=== PATIENT | female | born 1965 | race Caucasian/White ===

== ENCOUNTER 2020-02-05 07:27 | Outpatient (CLI) | payer BC, SELFPAY ==
--- NOTE | ~2020-02-05 | MM_ITS ---
EXAMINATION: MM screening [facility] BI w prashant HISTORY: Screening mammogram TECHNIQUE: Craniocaudal and mediolateral oblique 3-D tomosynthesis images were obtained and synthetic 2-D images were generated. CAD analysis was submitted and interpreted. COMPARISON: 12/01/2018, 07/16/2015, 02/23/2013 BREAST PARENCHYMAL COMPOSITION: The breasts are heterogeneously dense, which may obscure small masses . FINDINGS: There is no evidence of suspicious mass, calcification, or architectural distortion to sugg est malignancy in either breast. There has been no suspicious interval change. IMPRESSION: 1. No mammographic evidence of malignancy. 2. Recommend routine screening mammography in one year. BI-RADS Category 1: Negative Reviewed, dictated and finalized at location A.
== END 2020-02-05 07:28 | disposition home or self-care (01) ==
LOC: ANHIMG 07:31
PROVIDERS: PCP Family Medicine; Visit Provider Family Medicine
DX: Z12.31 Encounter for screening mammogram for malignant neoplasm of breast (principal)
CPT/HCPCS: 77063; 77067

== ENCOUNTER 2021-01-30 08:00 | Outpatient (CLI) | payer BC, SELFPAY ==
--- NOTE | ~2021-01-30 | DEXA_ITS ---
Bone Density Report Name: Rush Hernandes Age: 55 Sex: Female Ethnicity: White Date of : 1965 Indication: osteopenia; height loss; prior fracture; postmenopausal Referring Provider: Kenroy Monroe Study: Bone densitometry was performed. Exam Date: January 30, 2021 Accession number: [id number] Bone Density: Region BMD T-score Z-score Classification AP Spine (L1-L4) 0.842 -1.9 -0.6 Osteopenia Femoral Neck (Left) 0.599 -2.3 -1.1 Osteopenia Total Hip (Left) 0.764 -1.5 -0.7 Osteopenia Total Hip Bilateral Avg 0.732 -1.8 -0.9 Osteopenia Femoral Neck (Right) 0.636 -1.9 -0.8 Osteopenia Total Hip (Right) 0.700 -2.0 -1.2 Osteopenia World Health Organization criteria for BMD impression classify patients as: Normal (T-score at or above -1.0), Osteopenia (T-score between -1.0 and -2.5), or Osteoporosis (T-score at or below -2.5). 10-year Fracture Risk(1): Major Osteoporotic Fracture 16% Hip Fracture 2.6% Reported Risk Factors: [place] (), Neck BMD=0.599, BMI=26.9, previous fracture (1) FRAX(R) Version 3.08. Fracture probability calculated for an untreated patient. Fracture probability may be lower if the patient has received treatment. Previous Exams: Region Exam Age BMD T-score BMD Change BMD Change Date g/cm2 vs Baseline vs Previous AP Spine(L1-L4) 01/30/2021 55 0.842 -1.9 -0.018(-2.1%) -0.018(-2.1%) 12/01/2018 53 0.860 -1.7 Total Hip(Left) 01/30/2021 55 0.764 -1.5 -0.023(-2.9%) -0.023(-2.9%) 12/01/2018 53 0.787 -1.3 Total Hip(Right) 01/30/2021 55 0.700 -2.0 -0.019(-2.7%) -0.019(-2.7%) 12/01/2018 53 0.720 -1.8 *Denotes significance at 95% confidence level, LSC for AP Spine = 0.022 g/cm2, LSC for Total Hip = 0.027 g/cm2 Clinical Information Provided by Patient: Has had a low trauma fracture Patient maximum height was 64 Menopause Age: 48 Onset of menses at age 11 Number of children 3 Impression: The patient has low bone mass, based on the Left Femoral Neck T-score. The patient has an estimated ten-year risk of hip fracture of 2.6% and an estimated ten-year risk of major fracture of 16%, based on the WHO FRAX algorithm. The patient has risk factors, including: previous fracture. No significant bone loss was observed. Discussion: BONE DENSITY IS LOW AT ONE OR MORE SKELETAL SITES. This patient's lowest T-score is low at one or more skeletal sites. It meets the World Health Organization's (WHO) criteria for
== END 2021-01-30 08:01 | disposition home or self-care (01) ==
LOC: ANHIMG 08:02
PROVIDERS: PCP Family Medicine; Visit Provider Physician Assistant
DX: Z78.0 Asymptomatic menopausal state (principal); M85.89 Other specified disorders of bone density and structure, multiple sites
CPT/HCPCS: 77080

== ENCOUNTER 2021-06-16 07:51 | Outpatient (CLI) | payer BC, SELFPAY ==
--- NOTE | ~2021-06-16 | MM_ITS ---
EXAMINATION: MM screening [facility] BI w prashant HISTORY: Screening mammogram TECHNIQUE: Craniocaudal and mediolateral oblique 3-D tomosynthesis images were obtained and synthetic 2-D images were generated. CAD analysis was submitted and interpreted. COMPARISON: 02/05/2020, 12/01/2018, 07/16/2015 BREAST PARENCHYMAL COMPOSITION: The breasts are heterogeneously dense, which may obscure small masses . FINDINGS: There is no evidence of suspicious mass, calcification, or architectural distortion to sugg est malignancy in either breast. There has been no suspicious interval change. IMPRESSION: 1. No mammographic evidence of malignancy. 2. Recommend routine screening mammography in one year. BI-RADS Category 1: Negative Reviewed, dictated and finalized at location A. [employer]IST
== END 2021-06-16 07:52 | disposition home or self-care (01) ==
LOC: ANHIMG 07:53
PROVIDERS: PCP Family Medicine; Visit Provider Family Medicine
DX: Z12.31 Encounter for screening mammogram for malignant neoplasm of breast (principal)
CPT/HCPCS: 77063; 77067

== ENCOUNTER 2022-12-25 07:18 | Outpatient (CLI) | payer BC, SELFPAY ==
--- NOTE | ~2022-12-25 | MM_ITS ---
EXAMINATION: MM screening [facility] w prashant HISTORY: Screening mammogram TECHNIQUE: Craniocaudal and mediolateral oblique 3-D tomosynthesis images were obtained and synthetic 2-D images were generated. Bilateral rotated lateral CC views. CAD analysis was submitted and interp reted. COMPARISON: 06/16/2021, 02/01/2020, 12/01/2018 bilateral screening mammogram examinations BREAST PARENCHYMAL COMPOSITION: The breasts are heterogeneously dense, which may obscure small masses . FINDINGS: There is no evidence of suspicious mass, calcification, or architectural distortion to sugg est malignancy in either breast. There has been no suspicious interval change. IMPRESSION: 1. No mammographic evidence of malignancy. 2. Recommend routine screening mammography in one year. BI-RADS Category 1: Negative Reviewed, dictated and finalized at location A.
== END 2022-12-25 07:19 | disposition home or self-care (01) ==
LOC: ANHIMG 07:21
PROVIDERS: PCP Emergency Medicine; Visit Provider Family Medicine
DX: Z12.31 Encounter for screening mammogram for malignant neoplasm of breast (principal)
CPT/HCPCS: 77063; 77067

== ENCOUNTER → 2023-05-11 08:26 | Outpatient (CLI) | payer BC, SELFPAY ==
--- NOTE | ~2023-05-11 | MR_ITS ---
MRI of the left knee Clinical history: Injury Technique: Coronal proton density and proton density-weighted images, sagittal proton-density and T2 fat-sat images, and axial proton-density fat-saturated images were acquired. Findings: Anterior and posterior cruciate ligaments are intact. Medial collateral ligament and the la teral collateral ligament complex are intact. Popliteus tendon is intact. No lateral meniscal tear seen. There is prominent horizontal/complex tearing of the posterior horn of the medial meniscus. There is subchondral insufficiency fracture in the medial tibial plateau with extensive amorphous ginette rounding marrow edema. There is patchy mild to moderate chondromalacia the medial femoral condyle. Th ere is minimal chondral thinning in the lateral compartment and femoral trochlea. Extensor mechanism is intact. There is prominent tendinosis of the proximal patellar tendon. No joint effusion or Benavides's cyst. Impression: Subchondral insufficiency fracture of the medial tibial plateau with extensive surrounding marrow bennie ma. Complex/horizontal tearing of the posterior horn of the medial meniscus. Prominent tendinosis of the proximal patellar tendon. Reviewed, dictated and finalized at location . SHINGLE ROOFER Impression: Subchondral insufficiency fracture of the medial tibial plateau with extensive surrounding marrow edema. Complex/horizontal tearing of the posterior horn of the medial meniscus. Prominent tendinosis of the proximal patellar tendon.
== END ==
PROVIDERS: PCP Orthopaedic Surgery; Visit Provider Orthopaedic Surgery
DX: S83.232A Complex tear of medial meniscus, current injury, left knee, initial encounter (principal); X58.XXXA Exposure to other specified factors, initial encounter
CPT/HCPCS: 73721

== ENCOUNTER 2023-05-19 02:20 | Day surgery (SDC) | payer BC, SELFPAY ==
[2023-05-14 10:47] VITALS: BMI 25.7
--- NOTE | 2023-05-14 10:53 | PC.NURSE ---
Report to the Outpatient Waiting Room, entrance under the green pavilion located off [facility], at time 1130 on date 05/19/23. Planned Procedure Time: 1330. Time changes happen often and if your time is changed the preop area will call you the afternoon before. - You and your visitor will be asked to self-screen and do not enter if you have any COVID symptoms. - A mask is optional within the hospital at this time. Patients may have clear liquids (water, carbonated beverages, clear teas, apple juice) until 3 hours prior to surgery with a maximum of 20 ounces. - No food from midnight until time of surgery Take the following medications with a SIP of water the morning of surgery: N/A DO NOT STOP ANY OF YOUR OTHER PRESCRIPTION MEDICATIONS PRIOR TO SURGERY ?EXCEPT THE FOLLOWING Medications to discontinue per physician: IBUPROFEN Date to take last dose: PER DR. MALIK Please no make-up, nail [place], hairspray, perfume, deodorant, or body powder the day of surgery. No jewelry (including any body piercings) or valuables the day of surgery, leave them at home. Please take a shower or bath the night before, or the morning of, surgery with an antibacterial soap. Wear comfortable, loose fitting clothing. - Jewelry must be removed prior to entering the operating room. Rings and piercings that are not removed may be cut off. - The hospital will not accept responsibility for valuables. - Please leave all valuables, including medications, at home the day of surgery. If you are going home after surgery, a licensed test driver must drive you home. - NO public transportation without another adult if you receive anesthesia. - We recommend that an adult stay with you for 24 hours following discharge. - We also recommend that you do not drive, make important decision, drink alcoholic beverages, or take any drugs that were not prescribed by your health care provider for at least 24 hours after your discharge time. Follow any additional instructions given to you from your surgeon. If you or anyone in your household have experienced Covid symptoms in the past week, please notify your surgeon or the nurse liaison at the phone number below for possible testing. Telephone instructions given to PT - NATALIE BARRAZA and asked if any additional questions and then verbalized understanding. Patient advised to call surgeon office or pre surgery nurse liaison [phone] if any additional questions.
[2023-05-19] VITALS (13 sets, daily range): BP systolic 124–146; BP diastolic 75–98; PULSE 54–68; RESP 10–20; TEMP 36.4–36.7; O2SAT 97–100
--- NOTE | 2023-05-19 07:15 | WPDHPUPDATE1 ---
History and Physical Update Update Date/Time: 05/19/23 07:15 History and Physical has been reviewed, including an updated exam of the patient. There are NO changes in the patient's condition. Risks, benefits, and alternatives have been discussed and questions answered. Patient agrees to proceed with procedure.
[2023-05-19] MEDS: ACETAMINOPHEN 500 MG TABLET 1000 MG PO (12:08)
[2023-05-19] MEDS: CELECOXIB 200 MG CAPSULE PO (12:09)
[2023-05-19] MEDS: LACTATED RINGERS 1,000 ML 30 ML IV CONT ×2 (12:15→14:11)
--- NOTE | 2023-05-19 12:31 | P.PNAN_ITS ---
Anes - Initial Pre Proc Eval Procedure: Operation Date: 05/19/23 13:30 Proposed Procedures p Left Knee Arthroscopy - Ryland Yip MD Date/Time: 05/19/23 12:31 Surgeon: Ryland Yip MD Pre Op Diagnosis: left knee medial meniscal tear Patient Data Age: 57 Gender: F Height: 1.63 m Weight: 69.4 kg Last Vital Signs Temp 36.7 C 05/19/23 11:47 Pulse 56 L 05/19/23 11:47 Resp 20 05/19/23 11:47 BP 135/84 05/19/23 11:47 Pulse Ox 100 05/19/23 11:47 O2 Del Method Room Air 05/19/23 11:47 Allergies Allergy/AdvReac Type Severity Reaction Status Date / Time No Known Allergies Allergy Unknown none Verified 05/14/23 10:46 Home Medications Medication Instructions Recorded Confirmed Type chlorhexidine gluconate 4 % 1 applic topical DAILY #237 mL 05/14/23 05/19/23 Rx topical liquid (Hibiclens) ibuprofen 600 mg tablet 600 mg PO Q6H PRN Pain 05/14/23 05/14/23 History Patient hx anesthesia problems: none Family hx anesthesia problems: none Results Review: All pre-operative results and documents have been reviewed as part of the pre- operative evaluation. [facility] Past Medical History Medical History Left knee injury Surgical History Surgical History History of total knee arthroplasty (~2012) right Family History Family History Father Depression, Onset Age: 29 Family history of bipolar disorder, Onset Age: 29 Family history of suicide, Onset Age: 29 Grandparent Family history of glaucoma Hypertension Family history of lung cancer, Onset Age: 40 Family history of malignant neoplasm of breast Family history of malignant neoplasm of ovary, Onset Age: 72 Social History Social History Smoking status: Never smoker Alcohol intake: current Alcohol use details: 1/YEAR Substance use: never Substance use type: does not use Living arrangements: with family Occupation/Education: occupation 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 Informed Consent: The patient's anesthetic plan and its attendant risks and benefits were discussed with the patient/family/POA. Questions were solicited and answers provided to the satisfaction of the patient/family/POA.
[2023-05-19] MEDS: ceFAZolin 2 GM/D5W 50 ML 2 GM/50 ML BAG IVPB (13:01)
[2023-05-19] MEDS: BUPivacaine HCL 0.5% PF 30 ML VIAL INFILTRATE (13:35)
--- NOTE | 2023-05-19 14:11 | W.PM.PROC2 ---
Procedure Note - Detailed Date of Procedure 05/19/23 Pre-op Diagnosis left knee medial meniscal tear Post-op Diagnosis Same Procedure Performed LEFT KNEE SCOPE Surgeon Ryland Yip MD Anesthesia General Description of Procedure PATIENT WAS TAKEN TO THE OR. LEFT LEG WAS PREPPED AND DRAPED STERILE. TROCARS WERE PLACED IN THE USUAL FASHION. CAMERA WAS INTRODUCED. THERE WAS MINIMAL CHONDROMALACIA TO THE PATELLA FEMORAL JOINT. THERE WAS A LOT OF SYNOVITIS IN ALL COMPARTMENTS. THE MEDIAL COMPARTMENT SHOWED GRADE 2 CHONDROMALACIA TO THE MEDIAL FEMORAL CONDYLE. A SHAVER WAS USED TO PREFORM A CHONDROPLASTY. THERE WAS A COMPLEX MEDIAL MENISCUS TEAR. THE TEAR WAS RESECTED WITH A BITER AND A SHAVER DOWN TO A SMOOTH BASE. SYNOVIUM WAS IMPINGING ON THE MEDIAL JOINT LINE AND A SYNOVECTOMY WAS PREFORMED. THE ACL WAS INTACT. THE LATERAL MENISCUS WAS NOT TORN AND THE LATERAL COMPARTMENT HAD NO CHONDROMALACIA. SYNOVECTOMY WAS PREFORMED IN THE LATERAL COMPARTMENT. THE PATELLO FEMORAL JOINT UNDERWENT CHONDROPLASTY. SYNOVECTOMY WAS PREFORMED IN THE SUPERIOR MEDIAL COMPARTMENT AND A LARGE PLICA WAS REMOVED. THE WOUNDS WERE APPROXIMATED WITH 4.0 NYLON. STERILE DRESSING WAS APPLIED. PATIENT WAS EXTUBATED. Estimated Blood Loss -5.0 Complications No immediate complications Condition Stable Disposition PACU
[2023-05-19] MEDS: fentaNYL CITRATE INJ (*CRX) 100 MCG/2 ML VIAL 25 MCG IV PUSH ×4 (14:31→15:06)
[2023-05-19] MEDS: ONDANSETRON INJ 4 MG/2 ML VIAL IV PUSH (14:44)
[2023-05-19] MEDS: HYDROmorphone HCL INJ (*CRX) 1 MG/ML SYR 0.5 MG IV PUSH ×2 (15:19→15:35)
[2023-05-19] MEDS: oxyCODONE HCL (*CRX) 5 MG TAB IR PO (16:09)
[2023-05-19] MEDS: LACTATED RINGERS 1,000 ML 100 ML IV CONT (16:10)
[2023-05-19] MEDS: SCOPOLAMINE 1.5 MG PATCH TRANSDERM (16:18)
[2023-05-19] MEDS: diphenhydrAMINE HCl INJ 50 MG/ML VIAL 25 MG IV PUSH (16:18)
== END 2023-05-19 17:57 | disposition home or self-care (01) ==
PROVIDERS: PCP Emergency Medicine; Visit Provider Orthopaedic Surgery
PROC: (CPT 29870; principal; 2023-05-19 13:30)
DX: S83.232A Complex tear of medial meniscus, current injury, left knee, initial encounter (principal); M65.862 Other synovitis and tenosynovitis, left lower leg; M22.42 Chondromalacia patellae, left knee; X50.0XXA Overexertion from strenuous movement or load, initial encounter
CPT/HCPCS: 29881; 29876; A9270; J0690; J1100; J1170; J1200; J2250; J2405; J2704; J3010; J7120

== ENCOUNTER 2023-12-07 08:16 | Outpatient (CLI) | payer BC, SELFPAY ==
--- NOTE | 2023-12-07 08:39 | ECG_ITS ---
Test Date: 2023-12-07 08:53:09 Measurements Intervals Accord Rate: 46 P: 62 CT: 172 QRS: 14 QRSD: 98 T: 30 QT: 442 QTc: 390 Interpretive Statements SINUS BRADYCARDIA POSSIBLE LEFT ATRIAL ENLARGEMENT [-0.1mV P WAVE IN V1/V2] INCOMPLETE RIGHT BUNDLE BRANCH BLOCK No previous ECG available for comparison Electronically Signed On 12-07-2023 13:36:01 CDT by Justine Pabon M.D.
[2023-12-07 08:40] LABS: Appearance Urine Clear (Clear); Bacteria Urine None Seen /hpf; Bilirubin Urine Negative (Negative); Blood Urine Negative (Negative); Color Urine Yellow (Yellow); Glucose Urine UA Negative (Negative); Hyaline Casts Urine Present /lpf; Ketones Urine Trace mg/dL (Negative); Leukocyte Esterase Ur Negative LEU/UL (Negative); Need Manual Microscopic Reviewed; Nitrate Urine Negative (Negative); Protein Urine Trace mg/dL (Negative); Squamous Epithelial Cell Urine None Seen /hpf (Few); WBC Urine 0-5 /hpf (0-3); pH Urine 5.5 (5.0-9.0)
[2023-12-07 08:41] LABS: Add Urine Microscopic? YES; Specific Grav Ur 1.031 (1.001-1.035)
== END 2023-12-07 08:17 | disposition home or self-care (01) ==
LOC: ANHLAB 08:18
PROVIDERS: PCP Family Medicine; Visit Provider Nurse Practitioner Family
DX: R53.83 Other fatigue (principal); I10 Essential (primary) hypertension; I45.10 Unspecified right bundle-branch block
CPT/HCPCS: 81001; 93005

== ENCOUNTER 2024-01-05 09:22 | Outpatient (CLI) | payer BC, SELFPAY ==
--- NOTE | ~2024-01-05 | MM_ITS ---
EXAMINATION: MM screening [facility] BI w prashant HISTORY: Screening TECHNIQUE: Craniocaudal and mediolateral oblique 3-D tomosynthesis images were obtained and synthetic 2-D images were generated. CAD analysis was submitted and interpreted. COMPARISON: Comparison to multiple prior studies sequentially, with oldest reviewed study dated 07/2015. BREAST PARENCHYMAL COMPOSITION: Dense: The breasts are heterogeneously dense, which may obscure small masses FINDINGS: There is no evidence of suspicious mass, calcification, or architectural distortion to sugg est malignancy in either breast. There has been no suspicious interval change. IMPRESSION: 1. No mammographic evidence of malignancy. 2. Recommend routine screening mammography in one year. BI-RADS Category 1: Negative Reviewed, dictated and finalized at location B.
== END 2024-01-05 09:23 | disposition home or self-care (01) ==
LOC: ANHIMG 09:23
PROVIDERS: PCP Family Medicine; Visit Provider Family Medicine
DX: Z12.31 Encounter for screening mammogram for malignant neoplasm of breast (principal)
CPT/HCPCS: 77063; 77067

== ENCOUNTER 2024-01-05 10:05 | Outpatient (CLI) | payer BC, SELFPAY ==
[2024-01-05 10:39] LABS: Appearance Urine Clear (Clear); Bilirubin Urine Negative (Negative); Blood Urine Negative (Negative); Color Urine Yellow (Yellow); Glucose Urine UA Negative (Negative); Ketones Urine Negative (Negative); Leukocyte Esterase Ur Negative LEU/UL (Negative); Nitrate Urine Negative (Negative); Protein Urine Negative (Negative); Specific Grav Ur 1.005 (1.001-1.035); Urobilinogen Urine 0.2 mg/dL (<2.0)
[2024-01-05 11:01] LABS: Add Urine Microscopic? NO
== END 2024-01-05 10:06 | disposition home or self-care (01) ==
LOC: ANHLAB 10:06
PROVIDERS: PCP Family Medicine; Visit Provider Nurse Practitioner Family
DX: R31.9 Hematuria, unspecified (principal)
CPT/HCPCS: 81003

== ENCOUNTER 2024-03-08 13:44 | Outpatient (CLI) | payer BC, SELFPAY ==
[2024-03-08 15:38] LABS: Basophils Absolute Auto 0.1 K/mm3 (0.0-0.1); Basophils Percent Auto 1.3 % (0.2-1.2); Eosinophils Absolute Auto 0.5 K/mm3 (0-0.3); Eosinophils Percent Auto 8.2 % (0-4.4); Hematocrit 41.3 % (37.0-47.0); Hemoglobin 13.8 g/dL (12.0-15.0); Immature Granulocyte Absolute 0.02 K/mm3 (0.00-0.031); Immature Granulocyte Percent A 0.3 % (0-0.5); Lymphocytes Percent Auto 25.1 % (18.3-44.2); Mean Corpuscular HGB Conc 33.4 g/dl (32-36); Mean Corpuscular Hemoglobin 29.2 pg (26-34); Mean Corpuscular Volume 87.5 fl (80-100); Mean Platelet Volume 9.8 fl (7.4-10.4); Monocytes Absolute Auto 0.6 K/mm3 (0.1-0.6); Monocytes Percent Auto 9.2 % (2.6-8.5); Neutrophils Absolute Auto 3.6 K/mm3 (1.3-6.7); Neutrophils Percent Auto 55.9 % (45.5-73.1); Platelet Count Result 309 k/mm3 (150-375); Red Blood Count 4.72 M/mm3 (4.2-5.4); Red Cell Distribution Width 12.4 % (11.5-14.5); White Blood Count 6.4 K/mm3 (4.5-10.0)
[2024-03-08 15:43] LABS: Add Urine Microscopic? NO; Appearance Urine Clear (Clear); Bilirubin Urine Negative (Negative); Blood Urine Negative (Negative); Color Urine Yellow (Yellow); Glucose Urine UA Negative (Negative); Ketones Urine Negative (Negative); Leukocyte Esterase Ur Negative LEU/UL (Negative); Nitrate Urine Negative (Negative); Protein Urine Negative (Negative); Specific Grav Ur 1.006 (1.001-1.035); Urobilinogen Urine 0.2 mg/dL (<2.0); pH Urine 7.5 (5.0-9.0)
[2024-03-08 15:47] LABS: INR 0.9; Prothrombin Time 12.7 Seconds (11.1-14.7)
[2024-03-08 15:49] LABS: Partial Thromboplastin Time 35.1 Seconds (22.3-36.8)
[2024-03-08 16:12] LABS: Albumin Level 4.7 g/dL (3.5-5.1); Anion Gap 9 mmol/L (4-12); Blood Urea Nitrogen 9 mg/dL (7-17); Calcium 9.2 mg/dL (8.4-10.2); Carbon Dioxide 29 mmol/L (22-30); Chloride 102 mmol/L (98-107); Estimated Glomerular Filt Rate > 60; Glucose 92 mg/dL (65-110); Sodium 140 mmol/L (137-145)
[2024-03-08 16:33] LABS: Hemoglobin A1C 5.3 % (<5.7)
[2024-03-08 16:37] LABS: Urine Cotinine NEGATIVE
[2024-03-08 17:02] LABS: MRSA (PCR) NOT DETECTED (NOT DETECTE)
== END 2024-03-08 13:45 | disposition home or self-care (01) ==
LOC: ANHSURGERY 13:49
PROVIDERS: PCP Family Medicine; Visit Provider Orthopaedic Surgery
DX: Z01.818 Encounter for other preprocedural examination (principal); M17.11 Unilateral primary osteoarthritis, right knee
CPT/HCPCS: 80048; 80307; 81003; 82040; 83036; 85025; 85610; 85730; 87641

== ENCOUNTER 2024-03-22 01:22 | Day surgery (SDC) | payer BC, SELFPAY ==
[2024-03-08 13:58] VITALS: BP 128/79; PULSE 59; RESP 16; TEMP 37; O2SAT 99
[2024-03-08 13:59] VITALS: BMI 26.6
--- NOTE | 2024-03-08 14:21 | PC.NURSE ---
Report to the Outpatient Waiting Room, entrance under the green pavilion located off [facility], at time ___6:00AM____ on date ___03/22/24____. Planned Procedure Time: ___7:30AM .? Time changes happen often and if your time is changed the preop area will call you the afternoon before. - You and your visitor will be asked to self-screen and do not enter if you have any COVID symptoms. Please call surgeon if you need to reschedule. - A mask is optional within the hospital at this time. Patients may have clear liquids (water, carbonated beverages, clear teas, apple juice) until 3 hours prior to surgery with a maximum of 20 ounces. - No food from midnight until time of surgery and no smoking. Take only the following medications with a SIP of water on the morning of surgery: NONE DO NOT STOP ANY OF YOUR OTHER PRESCRIPTION MEDICATIONS PRIOR TO SURGERY EXCEPT THE FOLLOWING Medications to discontinue per physician ___HOLD ALL VITAMINS/SUPPLEMENTS 3 DAYS PRE-OP PER ANESTHESIA Date to take last dose 03/18/24 Please no make-up, nail libyan, hairspray, perfume, deodorant, or body powder the day of surgery.? No jewelry (including any body piercings) or valuables the day of surgery, leave them at home.? Please take a shower or bath the night before, or the morning of, surgery with an antibacterial soap.? Wear comfortable, loose fitting clothing.? - Jewelry must be removed prior to entering the operating room.? Rings and piercings that are not removed may be cut off. - The hospital will not accept responsibility for valuables.? - Please leave all valuables, including medications, at home the day of surgery. If you are going home after surgery, a licensed regional company hazmat tanker driver must drive you home.? - NO public transportation without another adult if you receive anesthesia. - We recommend that an adult stay with you for 24 hours following discharge. - We also recommend that you do not drive, make important decision, drink alcoholic beverages, or take any drugs that were not prescribed by your health care provider for at least 24 hours after your discharge time. Follow any additional instructions given to you from your surgeon. Telephone instructions given to ___PATIENT and asked if any additional questions and then verbalized understanding. Patient advised to call surgeon office or pre surgery nurse liaison [phone] if any additional questions.
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
[2024-03-22] VITALS (14 sets, daily range): BP systolic 128–145; BP diastolic 68–87; PULSE 58–86; RESP 12–20; TEMP 35.7–37.2; O2SAT 96–100; BMI 26.3
--- NOTE | ~2024-03-22 | XR_ITS ---
EXAMINATION: [id number] DATE: 03/22/2024 10:32 INDICATION: Total right knee arthroplasty. Postop. TECHNIQUE: 2 views of right knee were obtained. COMPARISON: Right knee radiographs 09/04/2023 FINDINGS: There is a total right knee arthroplasty without patellar resurfacing in near-anatomic alig nment. No fracture. There is a tiny patellar osteophyte. There is gas in the knee joint and soft tiss ues, consistent with recent surgery. IMPRESSION: 1. Total right knee arthroplasty in near-anatomic alignment. Reviewed, dictated and finalized at location A.
--- NOTE | 2024-03-22 06:39 | WPDANESEPPF ---
Anes - Initial Pre Proc Eval Procedure: Operation Date: 03/22/24 07:30 Proposed Procedures p Right Total Knee Arthroplasty - Ryland Yip MD Date/Time: 03/22/24 06:39 Surgeon: Ryland Yip MD Pre Op Diagnosis: Rt Knee O.A. Patient Data Age: 58 Gender: F Height: 1.63 m Weight: 70.4 kg Last Vital Signs Temp 37.0 C 03/08/24 13:58 Pulse 59 L 03/08/24 13:58 Resp 16 03/08/24 13:58 BP 128/79 03/08/24 13:58 Pulse Ox 99 03/08/24 13:58 O2 Del Method Room Air 03/08/24 13:58 Allergies Allergy/AdvReac Type Severity Reaction Status Date / Time No Known Allergies Allergy Unknown none Verified 03/22/24 06:34 Home Medications Medication Instructions Recorded Confirmed Type ibuprofen 600 mg tablet 600 mg PO Q6H PRN Pain 05/14/23 03/22/24 History calcium carb-ergocalciferol (vit 1 tablet PO DAILY 03/08/24 03/22/24 History D2) 600 mg calcium-200 unit tablet Patient hx anesthesia problems: post op nausea/vomiting Family hx anesthesia problems: none Results Review: All pre-operative results and documents have been reviewed as part of the pre-operative evaluation. [facility] Past Medical History Medical History Hematuria HTN (hypertension) Left knee injury Other fatigue Surgical History Surgical History History of total knee arthroplasty (~2012) right Family History Family History Father Depression, Onset Age: 29 Family history of bipolar disorder, Onset Age: 29 Family history of suicide, Onset Age: 29 Grandparent Family history of glaucoma Hypertension Family history of lung cancer, Onset Age: 40 Family history of malignant neoplasm of breast Family history of malignant neoplasm of ovary, Onset Age: 72 Mother Hypertension Social History Social History Smoking status: Never smoker Alcohol intake: current Alcohol use details: 1/YEAR Substance use: never Substance use type: does not use Do You Feel Safe in your Home?: Yes Lack of Transportation: No Lack of Food: Never True Current Housing: I Have Housing Concerned About Future Housing: No Difficulty Paying Gas/Electric Bills: No Difficulty Paying for Meds: No Currently Unemployed: No Education: Master's Degree or Higher Difficulty w/ Childcare or Family Care: No Living arrangements: with family Additional living arrangements comments: PARTNER Occupation/Education: occupation 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 Informed Consent: The patient's anesthetic plan and its attendant risks and benefits were discussed with the patient/family/POA. Questions were solicited and answers provided to the satisfaction of the patient/family/POA.
[2024-03-22] MEDS: ACETAMINOPHEN 500 MG TABLET 1000 MG PO (06:45)
[2024-03-22] MEDS: LACTATED RINGERS 1,000 ML 30 ML IV CONT ×3 (06:57→10:11)
[2024-03-22] MEDS: TRANEXAMIC ACID 1,000MG/ISO100 1,000 MG/100 ML BAG 200 MG IVPB (06:58)
[2024-03-22] MEDS: SCOPOLAMINE 1 MG PATCH 1 PATCH TRANSDERM (06:58)
--- NOTE | 2024-03-22 07:21 | WPDHPUPDATE1 ---
History and Physical Update Update Date/Time: 03/22/24 07:21 History and Physical has been reviewed, including an updated exam of the patient. There are NO changes in the patient's condition. Risks, benefits, and alternatives have been discussed and questions answered. Patient agrees to proceed with procedure.
--- NOTE | 2024-03-22 07:29 | WPDANESPNB ---
Anes - Peripheral Nerve Block Date/Time: 03/22/24 07:29 I have discussed with the patient/family/POA the placement of a peripheral nerve block for post-operative pain management, including associated risks, benefits, complications, and side effects. Alternative methods of post-operative analgesia were detailed. Questions were solicited and answers provided to the satisfaction of the patient/family/POA. Time-Out: A pre-procedural Time-Out was completed immediately before starting the procedure and confirmed: Patient Identification, Site, Procedure, Patient Position and the Availability of Requisite Equipment. Clinical Indications: Acute post-operative pain management requested by the operative surgeon. Nerve Block Insertion Note Anes-nerve block: adductor canal right Patient position: supine Skin prep: chlorhexidine Needle: 22 gauge, stimulating, insulated echogenic needle. Needle length: 80 mm Technique: ultrasound Injectate: bupivacaine 0.5% with epi 5 mcg/ml (25cc no epi) Observations: tolerated well Complications: none Procedure start time:: 724 Procedure end time:: 728
[2024-03-22] MEDS: ceFAZolin 2 GM/D5W 50 ML 2 GM/50 ML BAG IVPB ×3 (07:43→23:29)
--- NOTE | 2024-03-22 08:00 | SUR.PREOP ---
Blood bank notified RN at 0745 that confirmation tube is needed. Pt already in OR at this time. [employer] DEVELOPER was notified that confirmation tube is needed, but she states patient is already draped and arms are inaccessible without breaking sterile field.
[2024-03-22] MEDS: TRANEXAMIC ACID 1,000 MG/10 ML AMPUL 1000 MG IV PUSH (09:14)
[2024-03-22] MEDS: SODIUM CHLORIDE 0.9% IV 37.7 ML, MORPHINE SULFATE INJ (*CRX) 2 MG, ROPivacaine HCL 1% 2... INFILTRATE (09:18)
--- NOTE | 2024-03-22 10:10 | W.PM.PROC2 ---
Procedure Note - Detailed Date of Procedure 03/22/24 Pre-op Diagnosis Rt Knee O.A. Post-op Diagnosis Same Procedure Performed R TKA Surgeon Ryland Yip MD Anesthesia General Description of Procedure THE RIGHT KNEE WAS PREPPED AND DRAPED IN THE STERILE FASHION. THERE WAS A 10 DEGREE FLEXION CONTRACTURE. A MIDLINE SKIN INCISION WAS MADE. A MEDIAL PARAPATELLAR ARTHROTOMY WAS MADE. THE PATELLA WAS EVERTED. THERE WAS TRICOMPARTMENT DJD. THERE WAS MINIMAL PATELLA DJD. AN INTRAMEDULLARY MEMO WAS PLACED IN THE FEMUR. A DISTAL FEMORAL CUT WAS MADE IN 5 DEGREES OF VALGUS REMOVING APPROXIMATELY 9 MM OF BONE FROM THE DISTAL FEMUR. THE FEMUR WAS SIZED TO 62.5. A 62.5 FEMORAL CUTTING BLOCK WAS PLACED IN 3 DEGREES OF EXTERNAL ROTATION AND IN ALIGNMENT WITH RUBIA'S LINE AND THE TRANSEPICONDYLAR AXIS. ANTERIOR POSTERIOR AND CHAMFER CUTS WERE MADE. THE CUTS WERE EXCELLENT. NEXT AN INTRAMEDULLARY CUTTING GUIDE WAS PLACED IN THE TIBIA. A TRANS TIBIAL CUT WAS MADE ALONG THE LONG AXIS OF THE TIBIA. APPROXIMATELY 10 MM OF BONE WAS REMOVED FROM THE HIGH SIDE OF THE TIBIA. THE TIBIA WAS THEN PLANED TO A SMOOTH SURFACE. POSTERIOR FEMORAL OSTEOPHYTES WERE REMOVED FROM THE FEMORAL CONDYLES. A 71 TIBIAL TRIAL WAS PLACED IN ALIGNMENT WITH THE 1/3 MEDIAL ASPECT OF THE TIBIAL TUBERCLE. THEN A 62.5 FEMORAL TRIAL COMPONENT WAS PLACED. BOTH HAD EXCELLENT FITS. EVENTUALLY A 11 MM POLYETHYLENE TRIAL COMPONENT WAS PLACED. THE KNEE WAS TAKEN THROUGH A RANGE OF MOTION. THE KNEE CAME OUT TO FULL EXTENSION. THERE WAS NO ABNORMAL TILT TO THE PATELLA. THERE WAS GOOD A/P AND VARUS/VALGUS STABILITY. THERE WAS NO EXCESSIVE ROLL BACK WITH FLEXION. THE TRIAL COMPONENTS WERE REMOVED. THEN A 62.5 FEMORAL COMPONENT AND 71 TIBIAL COMPONENT WITH AN 11 POLYETHYLENE COMPONENT WERE CEMENTED INTO PLACE. ONCE THE CEMENT WAS HARD THE KNEE WAS TAKEN THROUGH A ROM AGAIN AND FOUND TO BE STABLE WITH NO PATELLA TILT NO EXCESSIVE ROLL BACK WITH FLEXION AND GOOD STABILITY WITH COMPLETE AND FULL EXTENSION. THE KNEE WAS IRRIGATED WITH STERILE BETADINE AND WATER FOR ABOUT 3 MINUTES. THE BLEEDERS WERE CAUTERIZED. THE ARTHROTOMY WAS REPAIRED WITH NUMBER 1 VICRYL. THE SUB CUTANEOUS LAYER WITH 2-0 VICRYL AND THE SKIN WITH 3-0 QUIL AND DERMABOND. THE WOUND WAS WASHED AND A STERILE DRESSING WAS APPLIED. PATIENT WAS EXTUBATED. Estimated Blood Loss -150.0 Pathology None sent Complications No immediate complications Condition Stable Disposition PACU
[2024-03-22] MEDS: fentaNYL CITRATE INJ (*CRX) 100 MCG/2 ML VIAL 25 MCG IV PUSH ×5 (10:31→11:06)
[2024-03-22] MEDS: KETOROLAC 15 MG/ML VIAL (*BKC) IV PUSH ×3 (10:49→23:29)
[2024-03-22] MEDS: ONDANSETRON INJ 4 MG/2 ML VIAL IV PUSH ×3 (10:51→18:45)
--- NOTE | 2024-03-22 11:40 | ADMGEN ---
This patient, Rush Hernandes, was admitted to Medical Room 345-01. Patient/family oriented to hospital policies and general routines including ID bracelet, bed and alarms, visiting hours, pain management, procedures, bathroom and other care routines, personal items, smoking policy, room service/diet, and visiting hours. Information on how to activate the Rapid Response Team has been discussed. Patient/Family are encouraged to report perceived risks to care and to ask questions if they do not understand what they are told or what they should do.
[2024-03-22] MEDS: ASPIRIN 325 MG ENTERIC TABLET PO ×2 (12:46→20:08)
[2024-03-22] MEDS: oxyCODONE/ACETAMINOPHEN (*CRX) 10-325 MG TABLET 1 TAB PO (12:46)
[2024-03-22] MEDS: SENNA/DOCUSATE SODIUM TABLET 2 TAB PO ×2 (12:46→17:26)
[2024-03-22] MEDS: FAMOTIDINE 20 MG TABLET PO ×2 (12:47→20:08)
[2024-03-22] MEDS: polyethylene glycoL 3350 17 GM POWD.PACK PO (12:47)
[2024-03-22] MEDS: diazePAM (*CRX) 5 MG TABLET PO (20:08)
[2024-03-23] VITALS: BP 103/68; PULSE 48; RESP 18; TEMP 36.5; O2SAT 97
[2024-03-23] MEDS: oxyCODONE/ACETAMINOPHEN (*CRX) 10-325 MG TABLET 1 TAB PO (03:46)
[2024-03-23 04:00] VITALS: BP 91/67; PULSE 51; RESP 18; TEMP 36.7; O2SAT 98
[2024-03-23] MEDS: KETOROLAC 15 MG/ML VIAL (*BKC) IV PUSH ×2 (05:26→11:09)
[2024-03-23 05:53] LABS: Basophils Percent Auto 0.4 % (0.2-1.2); Eosinophils Absolute Auto 0.1 K/mm3 (0-0.3); Eosinophils Percent Auto 0.5 % (0-4.4); Hematocrit 31.8 % (37.0-47.0); Hemoglobin 10.8 g/dL (12.0-15.0); Immature Granulocyte Absolute 0.03 K/mm3 (0.00-0.031); Immature Granulocyte Percent A 0.3 % (0-0.5); Lymphocytes Absolute Auto 1.76 K/mm3 (0.9-3.2); Lymphocytes Percent Auto 18.9 % (18.3-44.2); Mean Corpuscular Hemoglobin 29.6 pg (26-34); Mean Corpuscular Volume 87.1 fl (80-100); Monocytes Absolute Auto 0.9 K/mm3 (0.1-0.6); Monocytes Percent Auto 9.2 % (2.6-8.5); Neutrophils Absolute Auto 6.6 K/mm3 (1.3-6.7); Neutrophils Percent Auto 70.7 % (45.5-73.1); Platelet Count Result 226 k/mm3 (150-375); Red Blood Count 3.65 M/mm3 (4.2-5.4); Red Cell Distribution Width 12.4 % (11.5-14.5); White Blood Count 9.3 K/mm3 (4.5-10.0)
[2024-03-23 06:19] LABS: Anion Gap 5 mmol/L (4-12); Blood Urea Nitrogen 11 mg/dL (7-17); Calcium 9.3 mg/dL (8.4-10.2); Carbon Dioxide 30 mmol/L (22-30); Chloride 104 mmol/L (98-107); Estimated CRCL calculation 56 ml/min; Estimated Glomerular Filt Rate > 60; Glucose 94 mg/dL (65-110); Potassium 3.9 mmol/L (3.4-5.0); Sodium 139 mmol/L (137-145)
[2024-03-23] MEDS: ASPIRIN 325 MG ENTERIC TABLET PO (08:14)
[2024-03-23] MEDS: FAMOTIDINE 20 MG TABLET PO (08:14)
[2024-03-23] MEDS: SENNA/DOCUSATE SODIUM TABLET 2 TAB PO (08:14)
[2024-03-23] MEDS: ceFAZolin 2 GM/D5W 50 ML 2 GM/50 ML BAG IVPB (08:15)
[2024-03-23] MEDS: polyethylene glycoL 3350 17 GM POWD.PACK PO (08:15)
[2024-03-23 09:15] VITALS: BP 109/67; PULSE 63; RESP 18; TEMP 36.5; O2SAT 100
--- NOTE | 2024-03-23 10:53 | PM.PNORT ---
Progress Note: A&P Assessment and Plan (1) S/P total knee arthroplasty: Qualifiers: Laterality: right Qualified Code(s): Z96.651 - Presence of right artificial knee joint Code(s): Z96.659 - Presence of unspecified artificial knee joint Status: Acute Assessment and Plan: POD #1 : Right TKA Continue PT/OT. WBAT. Walker. HIGH FALL RISK. Continue pain control. Ice Knee. Protect skin. DVT prophylaxis with Aspirin. SCDs. Incentive Spirometry Use reviewed. Monitor Dressing. Change prior to discharge. Bowel Regimen. Dispo: Home with Home Health pending progress with PT/OT Plan Reviewed history, exam, radiographs and current labs with attending MD and covering surgeon, Dr. Yip, who agrees with current plan as indicated above. No further recommendations from Dr. Yip at this time. Subjective Subjective Date/Time Seen: 03/23/24 10:53 Post Op day: 1 Interval history: POD #1: Right TKA Patient doing well. Pain well controlled. No new concerns. Hopeful for d/c home today. Review of Systems Review of Systems: All systems reviewed & are unremarkable except as noted in HPI and below Constitutional: Constitutional: Denies fever(s) and Denies headache(s) ENT: Denies headache(s) Cardiovascular: Cardiovascular: Denies chest pain, Denies diaphoresis, Denies palpitations and Denies dyspnea Respiratory: Respiratory: Denies dyspnea Gastrointestinal: Gastrointestinal: Denies abdominal pain, Denies constipation, Denies nausea and Denies vomiting Genitourinary: Genitourinary: Reports nocturia and Denies dysuria Musculoskeletal: Musculoskeletal: Reports arthralgias (Right Knee ) and Reports joint swelling (Right Knee ) Neurologic: Denies headache(s) Endocrine: Endocrine: Denies palpitations Exam Const: General: comfortable and no acute distress Resp: Effort & Inspection: normal respiratory effort Cardio: Rate: regular rate Rhythm: regular rhythm GI: GI Palp: Yes Soft to palpation, No Tenderness to palpation present (GI) and No Guarding due to palpation present (GI) Skin: General skin exam: wounds noted Wounds: wounds noted Other: Incision c/d/i. No surrounding redness/warmth. No hematoma. Mild ecchymosis. No wound dehiscence Neuro: Cognition (Neuro): normal cognition Other: NV intact aside from block. Moves toes. Sensation intact to light touch. +ankle dorsiflexion/plantarflexion. Extrem: Right lower extremity: normal to inspection, knee Details: tenderness (diffuse, mild ) Location: of the patella, swelling (diffuse, consistent with surgical intervention ), abnormal ROM Details: pain with active ROM during, pain with passive ROM during and with range as follows (limited due to recent surgical intervention ); able to extend lower leg actively and ecchymosis (mild ), lower leg (Negative Vance's Sign ) Details: normal to inspection; no erythema and no tenderness, ankle (+ankle dorsiflexion/plantarflexion ) Details: normal to inspection, no edema and normal ROM; no tenderness, no swelling and no ecchymosis and foot Details: normal capillary refill, normal to inspection, vascular exam Details: dorsalis pedis pulse present and motor-sensory exam Details: light-touch normal; no tenderness Left lower extremity: normal to inspection Psych: Mental Status: mental status grossly normal Objective Data Vital Signs Vital Signs: Vital Signs - 24 hr 03/22/24 10:57 03/22/24 11:12 03/22/24 11:27 Temperature 36.6 C Pulse Rate 84 86 61 Respiratory Rate 19 20 12 Blood Pressure 134/87 138/77 133/80 Pulse Oximetry 96 97 96 Oxygen Delivery Room Air Room Air 03/22/24 11:45 03/22/24 12:00 03/22/24 12:30 Temperature 35.8 C L 35.7 C L 36.1 C L Pulse Rate 71 68 70 Respiratory Rate 16 16 16 Blood Pressure 134/79 145/84 H 136/70 Pulse Oximetry 98 100 99 Oxygen Delivery 03/22/24 13:30 03/22/24 13:43 03/22/24 20:00 Temperature 36.1 C L Pulse Rate 69 Respira
--- NOTE | 2024-03-23 12:47 | PM.DS ---
DS: Admitting Diagnosis Discharge Date 03/23/2024 Admitting Diagnosis Right Knee DJD DS: Discharge Diagnosis Discharge Diagnosis (1) S/P total knee arthroplasty: Qualifiers: Laterality: right Qualified Code(s): Z96.651 - Presence of right artificial knee joint Code(s): Z96.659 - Presence of unspecified artificial knee joint Status: Acute Assessment and Plan: POD #1 : Right TKA Continue PT/OT. WBAT. Walker. HIGH FALL RISK. Continue pain control. Ice Knee. Protect skin. DVT prophylaxis with Aspirin. SCDs. Incentive Spirometry Use reviewed. Monitor Dressing. Change prior to discharge. Bowel Regimen. Dispo: Home with Home Health pending progress with PT/OT Plan Reviewed history, exam, radiographs and current labs with attending MD and covering surgeon, Dr. Yip, who agrees with current plan as indicated above. No further recommendations from Dr. Yip at this time. DS: Summary Hospital Course Reason for hospitalization: Right Knee DJD Hospital Course: 58 year old female admitted s/p Right TKA for postoperative medical management, pain control and mobilization with PT/OT. Patient progressed well with PT/OT. Pain and vitals remained stable throughout. The patient has been cleared to be discharged home with home health at this time. All discharge care instructions reviewed at depth. New medications reviewed. Follow up planned for 3 weeks in the outpatient orthopedic clinic with Dr. Yip. Dr. Yip in agreement with safe discharge at this time. Status at Discharge Functional status at discharge: uses cane/walker Overall status at discharge: patient is progressing back to baseline Time Spent with Patient Time attestation: Total time spent providing and/or coordinating discharge services: Exam Const: General: comfortable and no acute distress Resp: Effort & Inspection: normal respiratory effort Cardio: Rate: regular rate Rhythm: regular rhythm Skin: General skin exam: wounds noted Wounds: wounds noted Other: Incision c/d/i. No surrounding redness/warmth. No hematoma. Mild ecchymosis. No wound dehiscence Neuro: Cognition (Neuro): normal cognition Other: NV intact aside from block. Moves toes. Sensation intact to light touch. +ankle dorsiflexion/plantarflexion. Extrem: Right lower extremity: normal to inspection, knee Details: tenderness (diffuse, mild ) Location: of the patella, swelling (diffuse, consistent with surgical intervention ), abnormal ROM Details: pain with active ROM during, pain with passive ROM during and with range as follows (limited due to recent surgical intervention ); able to extend lower leg actively and ecchymosis (mild ), lower leg (Negative Vance's Sign ) Details: normal to inspection; no erythema and no tenderness, ankle (+ankle dorsiflexion/plantarflexion ) Details: normal to inspection, no edema and normal ROM; no tenderness, no swelling and no ecchymosis and foot Details: normal capillary refill, normal to inspection, vascular exam Details: dorsalis pedis pulse present and motor-sensory exam Details: light-touch normal; no tenderness Left lower extremity: normal to inspection Psych: Mental Status: mental status grossly normal DS: Data Data Completed and Pending Labs on day of discharge: Labs from last 24 hours 03/23/24 05:38 WBC 9.3 RBC 3.65 L Hgb 10.8 L D Hct 31.8 L MCV 87.1 MCH 29.6 MCHC 34.0 RDW 12.4 Plt Count 226 MPV 10.0 Immature Gran % (Auto) 0.3 Neut % (Auto) 70.7 Lymph % (Auto) 18.9 Catron % (Auto) 9.2 H Eos % (Auto) 0.5 Baso % (Auto) 0.4 Lymph # (Auto) 1.76 Catron # (Auto) 0.9 H Eos # (Auto) 0.1 Baso # (Auto) 0.0 Abs Immat Gran (auto) 0.03 Absolute Neuts (auto) 6.6 Absolute Nucleated RBC 0.000 Nucleated RBC % 0.0 Sodium 139 Potassium 3.9 Chloride 104 Carbon Dioxide 30 Anion Gap 5 BUN 11 Creatinine 0.80 Estim Creat Clear Calc 56 Estimated GFR > 60 Glucose 94 Arslan
== END 2024-03-23 14:23 | disposition home health service (06) ==
LOC: ANHSURGERY 09:17 → ANH3MED 11:32
PROVIDERS: PCP Family Medicine; Visit Provider Orthopaedic Surgery
PROC: (CPT 27447; principal; 2024-03-22 07:30)
DX: M17.11 Unilateral primary osteoarthritis, right knee (principal); G89.18 Other acute postprocedural pain; I10 Essential (primary) hypertension
CPT/HCPCS: 27447; 64447; 36415; 73560; 80048; 85025; 86850; 86900; 86901; 97110; 97116; 97161; 97165; 97535; A9270; C1713; C1776; J0171; J0690; J1100; J1171; J1885; J2003; J2250; J2270; J2405; J2704; J2795; J3010; J3370; J7120

== ENCOUNTER 2024-06-28 00:31 | Day surgery (SDC) | payer BC, SELFPAY ==
[2024-06-22 12:57] VITALS: BMI 25.8
--- NOTE | 2024-06-22 12:58 | PC.NURSE ---
Report to the Outpatient Waiting Room, entrance under the green pavilion located off [facility], at time _1130_ on date _[id number]_. Planned Procedure Time: _130pm_.? Time changes happen often and if your time is changed the preop area will call you the afternoon before. - You and your visitor will be asked to self-screen and do not enter if you have any COVID symptoms. Please call surgeon if you need to reschedule. - A mask is optional within the hospital at this time. Patients may have clear liquids (water, carbonated beverages, clear teas, apple juice) until 3 hours prior to surgery with a maximum of 20 ounces. - No food from midnight until time of surgery and no smoking. This includes no chewing gum, candy or mints. Take only the following medications with a SIP of water on the morning of surgery: ___None DO NOT STOP ANY OF YOUR OTHER PRESCRIPTION MEDICATIONS PRIOR TO SURGERY EXCEPT THE FOLLOWING Medications to discontinue per physician Calcium with Vitamin D2 Date to take last iffy___[id number] Yip's office if OK to take Ibuprofen. Please no make-up, nail turkmen, hairspray, perfume, deodorant, or body powder the day of surgery.? No jewelry (including any body piercings) or valuables the day of surgery, leave them at home.? Please take a shower or bath the night before, or the morning of, surgery with an antibacterial soap.? Wear comfortable, loose fitting clothing.? - Jewelry must be removed prior to entering the operating room.? Rings and piercings that are not removed may be cut off. - The hospital will not accept responsibility for valuables.? - Please leave all valuables, including medications, at home the day of surgery. If you are going home after surgery, a licensed refrigerated national truck driver must drive you home.? - NO public transportation without another adult if you receive anesthesia. - We recommend that an adult stay with you for 24 hours following discharge. - We also recommend that you do not drive, make important decision, drink alcoholic beverages, or take any drugs that were not prescribed by your health care provider for at least 24 hours after your discharge time. Follow any additional instructions given to you from your surgeon. Telephone instructions given to __Robin__and asked if any additional questions and then verbalized understanding. Patient advised to call surgeon office or pre surgery nurse liaison [phone] if any additional questions.
[2024-06-28] VITALS (8 sets, daily range): BP systolic 123–152; BP diastolic 65–96; PULSE 52–57; RESP 11–19; TEMP 36.6; O2SAT 95–99
--- NOTE | 2024-06-28 07:14 | WPDHPUPDATE1 ---
History and Physical Update Update Date/Time: 06/28/24 07:14 History and Physical has been reviewed, including an updated exam of the patient. There are NO changes in the patient's condition. Risks, benefits, and alternatives have been discussed and questions answered. Patient agrees to proceed with procedure.
[2024-06-28] MEDS: ACETAMINOPHEN 500 MG TABLET 1000 MG PO (12:10)
[2024-06-28] MEDS: KETOROLAC 30 MG/ML VIAL (*BKC) IV PUSH (12:15)
--- NOTE | 2024-06-28 14:03 | WPDANESEPPF ---
Anes - Initial Pre Proc Eval Procedure: Operation Date: 06/28/24 13:30 Proposed Procedures p Right Knee Manipulation under Anesthesia with Cortisone Injection - Ryland Yip MD Date/Time: 06/28/24 14:03 Surgeon: Ryland Yip MD Pre Op Diagnosis: Adhesive Capsulitis Right Knee Patient Data Age: 58 Gender: F Height: 1.63 m Weight: 73.1 kg Allergies Allergy/AdvReac Type Severity Reaction Status Date / Time No Known Allergies Allergy Unknown none Verified 06/22/24 12:49 Home Medications ?Medication ?Instructions ?Recorded ?Confirmed ?Type ibuprofen 600 mg tablet 600 mg PO Q6H PRN Pain 05/14/23 06/28/24 History calcium carb-ergocalciferol (vit 1 tablet PO DAILY 03/08/24 06/28/24 History D2) 600 mg calcium-200 unit tablet atorvastatin 20 mg tablet 20 mg PO QHS #90 tabs 05/01/24 06/28/24 Rx Patient hx anesthesia problems: none Family hx anesthesia problems: none Results Review: All pre-operative results and documents have been reviewed as part of the pre-operative evaluation. [facility] Past Medical History Medical History Hematuria HTN (hypertension) Other fatigue Left knee injury Surgical History Surgical History S/P total knee arthroplasty RT TKA 03/22/24 w/ Dr. Yip History of total knee arthroplasty (~2012) right Family History Family History Father Depression, Onset Age: 29 Family history of bipolar disorder, Onset Age: 29 Family history of suicide, Onset Age: 29 Grandparent Family history of glaucoma Hypertension Family history of lung cancer, Onset Age: 40 Family history of malignant neoplasm of breast Family history of malignant neoplasm of ovary, Onset Age: 72 Mother Hypertension Social History Social History Smoking status: Never smoker Alcohol intake: current Alcohol use details: 1/YEAR Substance use: never Substance use type: does not use Do You Feel Safe in your Home?: Yes Lack of Transportation: No Lack of Food: Never True Current Housing: I Have Housing Concerned About Future Housing: No Difficulty Paying Gas/Electric Bills: No Difficulty Paying for Meds: No Currently Unemployed: No Education: Master's Degree or Higher Difficulty w/ Childcare or Family Care: No Living arrangements: with family Additional living arrangements comments: PARTNER Occupation/Education: occupation 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 Informed Consent: The patient's anesthetic plan and its attendant risks and benefits were discussed with the patient/family/POA. Questions were solicited and answers provided to the satisfaction of the patient/family/POA.
[2024-06-28] MEDS: methylPREDNISolone ACETATE 80 MG/ML VIAL 160 MG IM (15:09)
[2024-06-28] MEDS: LACTATED RINGERS 1,000 ML 30 ML IV CONT ×2 (15:10→16:16)
--- NOTE | 2024-06-28 15:17 | W.PM.PROC2 ---
Procedure Note - Detailed Date of Procedure 06/28/24 Pre-op Diagnosis Adhesive Capsulitis Right Knee Post-op Diagnosis Same Procedure Performed PHILLY, INJECTION RIGHT TKA Surgeon Ryland Yip MD Anesthesia General Description of Procedure THE PATIENT WAS TAKEN TO THE OPERATING ROOM AND PLACED UNDER GENERAL ANESTHESIA. ONCE SHE WAS CHEMICALLY PARALYZED THE RIGHT KNEE WAS MANIPULATED UNTIL ABOUT 125 DEG OF FLEXION AND FULL EXTENSION WERE ACHIEVED. AUDIBLE LYSIS OF ADHESIONS WAS OBSERVED. NEXT THE RIGHT KNEE WAS PREPPED AND DRAPED STERILELY. DEPO MEDROL 80 MG X 2 CC AND MARCAINE 0.5% 10 CC WERE INJECTED IN TO THE RIGHT KNEE JOINT. THE PATIENT WAS SENT TO THE RECOVERY ROOM ONCE GENERAL ANESTHESIA WAS REVERSED, IN STABLE CONDITION. Estimated Blood Loss 0 Complications No immediate complications Disposition PACU
[2024-06-28] MEDS: ONDANSETRON INJ 4 MG/2 ML VIAL IV PUSH (15:45)
[2024-06-28] MEDS: fentaNYL CITRATE INJ (*CRX) 100 MCG/2 ML VIAL 25 MCG IV PUSH ×4 (15:45→16:17)
[2024-06-28] MEDS: oxyCODONE HCL (*CRX) 5 MG TAB IR PO (16:41)
== END 2024-06-28 17:25 | disposition home or self-care (01) ==
PROVIDERS: PCP Family Medicine; Visit Provider Orthopaedic Surgery
PROC: (CPT 27570; principal; 2024-06-28 13:30)
DX: M76.891 Other specified enthesopathies of right lower limb, excluding foot (principal); Z96.651 Presence of right artificial knee joint
CPT/HCPCS: 27570; A9270; J0330; J1010; J1885; J2250; J2405; J2704; J3010; J7120

== ENCOUNTER 2024-11-09 07:45 | Outpatient (CLI) | payer BC, SELFPAY ==
--- NOTE | ~2024-11-09 | DEXA_ITS ---
Bone Density Report Name: NATALIE BARRAZA Age: 59 Sex: Female Ethnicity: White Date of : 1965 Indication: postmenopausal; screening for osteoporosis; height loss; Referring Provider: Ines Alonso Study: Bone densitometry was performed. Exam Date: November 09, 2024 Accession number: [id number] Bone Density: Region BMD T-score Z-score Classification AP Spine(L1-L4) 0.711 -3.1 -1.6 Osteoporosis Femoral Neck (Left) 0.550 -2.7 -1.4 Osteoporosis Total Hip (Left) 0.769 -1.4 -0.4 Osteopenia Femoral Neck (Right) 0.612 -2.1 -0.8 Osteopenia Total Hip (Right) 0.685 -2.1 -1.1 Osteopenia Femoral Neck Mean 0.581 -2.4 -1.1 Osteopenia Total Hip Mean 0.727 -1.8 -0.8 Osteopenia World Health Organization criteria for BMD impression classify patients as: Normal (T-score at or above -1.0), Osteopenia (T-score between -1.0 and -2.5), or Osteoporosis (T-score at or below -2.5). 10-year Fracture Risk: FRAX not reported because: Some T-score for Spine Total or Hip Total or Femoral Neck at or below -2.5 Clinical Information Provided by Patient: Has used the following medications: Vitamin D, Calcium Patient maximum height was 64 Menopause Age: 48 Drinks caffeinated beverages Onset of menses at age 13 Number of children 3 Impression: The patient has osteoporosis, based on the Total Spine T-score. Discussion: INCREASED RISK OF FRACTURE. BONE DENSITY IS UNDESIRABLY LOW AT ONE OR MORE SKELETAL SITES, CONSISTENT WITH POSTMENOPAUSAL OSTEOPOROSIS. This patient's lowest T-score meets the World Health Organization's (WHO) criteria for osteoporosis at one or more sites (T-score -2.5 or below). In untreated patients, the risk of osteoporotic fracture increases approximately two-fold for each 1.0 SD decrease in T-score. Low bone density is not the only risk factor for fracture; also consider factors such as patient's age, frailty or poor health, risk of falling, risk of injury, previous osteoporotic fracture, family history of osteoporosis, cigarette smoking, low body weight, etc. Not everyone with low bone mineral density has osteoporosis; osteomalacia and other metabolic bone disorders should also be considered. Patients who have osteoporosis should be evaluated for specific diseases and conditions (secondary causes) that may cause or contribute to bone loss. The [place] Association of Clinical Endocrinologists (AACE) and National Osteoporosis Foundation (NOF) recommend pharmacologic intervention for all postmenopausal women whose T-score is in this range. The patient should follow a healthful lifestyle (good nutrition with adequate calcium and vitamin D, and appropriate weight-bearing exercise). Follow-Up: Consider a repeat BMD and Vertebral Fracture Assessment (VFA) exam in 2 years or sooner if medically necessary, to reassess this patient's status. Reported by: MAURICIO on 11/09/2024 8:05:00 AM. Reviewed, dictated and finalized at location A.
--- OUTSIDE RECORDS SUMMARY | 2024-11-09 07:48 | XMS_ITS | Clinical Summary ---
Author Organization [facility] [address] Address [address] [place] [address] Care Team Providers Care Spool Fixer Name Role Phone Ivan Horne MD Primary Care Provider [phone] Allergies No known active allergies Medications No known medications Active Problems Problem Noted Date Diagnosed Date Dysphagia 12/13/2018 Chest pain 11/03/2018 S/P RF ablation operation for arrhythmia 019 Chest tightness 10/14/2018 Pain in both upper extremities 10/14/2018 Lightheadedness 10/14/2018 Family history of premature CAD 10/14/2018 Decreased exercise tolerance 10/14/2018 Palpitations 03/24/2012 Overview (09/18/2016): Palpitations Surgical History Surgery Date Site/Laterality Comments SECTION KNEE SURGERY Medical History Medical History Date Comments Arrhythmia Family History Medical History Relation Name Comments No Known Problems Brother 1 No Known Problems Brother 2 No Known Problems Brother 3 Heart block Brother 4 Other Father suicide, bi mat ar; Cause of : suicide, bi polar Other Mother healthy; Relation Name Status Comments Brother 1 Alive Brother 2 Alive Brother 3 Alive Brother 4 (Age 49) Father (Age 29) Mother Alive Social History Tobacco Use Types Packs/Day Years Used Date Smoking Tobacco: Never Smokeless Tobacco: Never Alcohol Use Standard Drinks/Week Comments Yes 1 (1 standard drink = 0.6 oz pur e alcohol) AUDIT-C Answer Date Recorded Frequency of Alcohol Consumption Monthly or less 10/14/2018 Average Number of Drinks 1 or 2 019 Frequency of Binge Drinking Never 08/2018 Comments Unknown Sex and Gender Information Value Date Recorded Sex Assigned at Not on file 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 Gender Identity Not on file Sexual Orientation Not on file Obstetrics History Last Filed Vital Signs Vital Sign Reading Time Taken Comments Blood Pressure 122/78 02/14/2019 8:33 AM CDT Pulse 60 02/14/2019 8:33 AM CDT Temperature - - Respiratory Rate 18 10/14/2018 8:05 AM CDT Oxygen Saturation 98% 02/14/2019 8:33 AM CDT Inhaled Oxygen Concentration - - Weight 69.9 kg (154 lb) 02/14/2019 8:33 AM CDT Height 162.6 cm (5' 4) 02/14/2019 8:33 AM CDT Body Mass Index 26.43 02/14/2019 8:33 AM CDT Plan of Treatment Not on file Insurance [employer] [facility] Care Teams Spool Fixer Relationship Specialty Start Date End Date Ivan Horne MD [address] [place] [address] PCP - General Family Medicine 10/11/18
--- OUTSIDE RECORDS SUMMARY | 2024-11-09 07:48 | XMS_ITS | Referral Summary ---
Author Organization [facility] [address] Address [address] [place] [address] Care Team Providers Care Padder Name Role Phone Ivan Horne MD Primary Care Provider [phone] Allergies No known active allergies Medications No known medications Active Problems Problem Noted Date Diagnosed Date Dysphagia 12/13/2018 Chest pain 11/03/2018 S/P RF ablation operation for arrhythmia 019 Chest tightness 10/14/2018 Pain in both upper extremities 10/14/2018 Lightheadedness 10/14/2018 Family history of premature CAD 10/14/2018 Decreased exercise tolerance 10/14/2018 Palpitations 03/24/2012 Overview (09/18/2016): Palpitations Social History Tobacco Use Types Packs/Day Years [...] on file 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
--- OUTSIDE RECORDS SUMMARY | 2024-11-09 07:48 | XMS_ITS | Clinical Summary ---
Author Organization [facility] Address [address] [place] [address] Care Team Providers Care Egyptologist Name Role Phone Ivan Horne MD Primary Care Provider [phone] Source Comments [facility],non-[facility] Affiliates and Associated Physician Practices is amultiple site organization consisting of ambulatory clinics and hospital sitesin [place], [place], [place] and [place]. This disclosure is being madepursuant to the Care Everywhere program and may not contain all information available regarding this patient. Last updated 18.[facility] Health Allergies No known active allergies Social History Tobacco Use Types Packs/Day Years Used Date Smoking Tobacco: Never Smokeless Tobacco: Never Alcohol Use Standard Drinks/Week Comments No 0 (1 standard drink = 0.6 oz pur e alcohol) Comments Unknown Sex and Gender Information Value Date Recorded Sex Assigned at Not on file Legal Sex Female 5:34 PM CDT Gender Identity Not on file Sexual Orientation Not on file Last Filed Vital Signs Vital Sign Reading Time Taken Comments Blood Pressure 149/91 08/15/2018 5:30 PM ASTRONOMY TEACHER Pulse 69 08/15/2018 1:16 PM ASTRONOMY TEACHER Temperature 36.7 C (98.1 F) 08/15/2018 1:16 PM ASTRONOMY TEACHER Respiratory Rate 16 08/15/2018 1:16 PM ASTRONOMY TEACHER Oxygen Saturation 100% 08/15/2018 5:30 PM ASTRONOMY TEACHER Inhaled Oxygen Concentration - - Weight 68 kg (150 lb) 08/15/2018 1:16 PM ASTRONOMY TEACHER Height 162.6 cm (5' 4) 08/15/2018 1:16 PM ASTRONOMY TEACHER Body Mass Index 25.75 08/15/2018 1:16 PM ASTRONOMY TEACHER Plan of Treatment Health Maintenance Due Date Last Done Comments COLOGUARD (AGES 45-75) - COL ON CA SCREENING 1965 COLON MONITORING 1965 COLONOSCOPY - COLON CA SCREENING 1963 CT COLONOGRAPHY - COLON CA SCREENING 1965 Colorectal Cancer Screening 1965 FIT - COLON CA SCREENING 1963 FLEX SIG - COLON CA SCREENING 1965 LIPID TESTING 1965 MAMMOGRAM 1965 HIV SCREENING 09/11/1978 HEPATITIS C SCREENING 09/07/1981 DTAP/TDAP/TD VACCINES (1 - Tdap) 09/11/1982 PNEUMOCOCCAL VACCINE 50+ (1 of 1 - PCV) 09/11/2013 ZOSTER VACCINE (1 of 2) 09/11/2013 COVID-19 VACCINE ( - 2023-2 5 season) 2024 DEPRESSION SCREENING 06/14/2024 INFLUENZA VACCINE (Season Ended) 2025 Respiratory Syncytial Virus (RSV) Vaccine Pt: or over 60 yrs (1 - 1-dose 75+ series) 09/11/2038 HEPATITIS B VACCINE Aged Out No longe r eligible based on patient's age to complete this topic HIB VACCINE Aged Out No longer eligi ble based on patient's age to complete this topic HPV VACCINE Aged Out No longer eligi ble based on patient's age to complete this topic MENINGOCOCCAL (Group B) VACC INE SHARED DECISION-MAKING Aged Out No longer eligibl e based on patient's age to complete this topic MENINGOCOCCAL GROUPS A/C/Y/W VACCINE Aged Out No longer eligible b ased on patient's age to complete this topic Insurance [facility] Care Teams Egyptologist Relationship Specialty Start Date End Date Ivan Horne MD [address] [phone] PCP - General Family Medicine 08/15/18
== END 2024-11-09 07:46 | disposition home or self-care (01) ==
LOC: CHSIMG 07:46
PROVIDERS: PCP Family Medicine; Visit Provider Nurse Practitioner
DX: M85.88 Other specified disorders of bone density and structure, other site (principal); M81.0 Age-related osteoporosis without current pathological fracture
CPT/HCPCS: 77080

== ENCOUNTER 2024-11-27 09:15 | Emergency (ER) | payer BC, SELFPAY ==
[2024-11-27 09:19] VITALS: BP 141/94; PULSE 57; RESP 16; TEMP 36.4; O2SAT 100
--- NOTE | 2024-11-27 09:34 | ED_ITS ---
HPI - Ear Problem General Chief complaint: Ear Stated complaint: EARACHE Time Seen by Provider: 11/27/24 09:34 Source: patient, RN notes reviewed and old records reviewed Mode of arrival: ambulatory Limitations: no limitations History of Present Illness HPI Narrative: 59-year-old female presents to the [facility] with complaints of a left-sided earache. States she was concerned because it she was swimming at [place]. Denies any fevers. Denies any other symptoms Related Data Home Medications ?Medication ?Instructions ?Recorded ?Confirmed ?Last Taken ?Type ibuprofen 600 mg tablet 600 mg PO Q6H PRN Pain 05/14/23 11/27/24 06/21/24 History calcium carb-ergocalciferol (vit 1 tablet PO DAILY 03/08/24 11/27/24 06/23/24 History D2) 600 mg calcium-200 unit tablet Allergies Allergy/AdvReac Type Severity Reaction Status Date / Time simvastatin AdvReac Intermediate Muscle Pain Verified 11/27/24 09:20 Review of Systems Review of Systems: All systems reviewed & are unremarkable except as noted in HPI and below Constitutional: Constitutional: Reports no additional constitutional complaints ENT: Reports as per HPI Cardiovascular: Cardiovascular: Reports no additional cardiovascular complaints, Denies chest pain and Denies dyspnea Respiratory: Respiratory: Reports no additional respiratory complaints, Denies chest congestion, Denies cough and Denies dyspnea Musculoskeletal: Musculoskeletal: Reports no additional musculoskeletal complaints Integumentary/Breasts: Skin/Breast: Reports system reviewed and no additional complaints, except as docu PMFSH Past Medical History Medical History Hematuria HTN (hypertension) Other fatigue Left knee injury Surgical History Surgical History S/P total knee arthroplasty RT TKA 03/22/24 w/ Dr. Yip History of total knee arthroplasty (~2012) right Family History Family History Father Depression, Onset Age: 29 Family history of bipolar disorder, Onset Age: 29 Family history of suicide, Onset Age: 29 Grandparent Family history of glaucoma Hypertension Family history of lung cancer, Onset Age: 40 Family history of malignant neoplasm of breast Family history of malignant neoplasm of ovary, Onset Age: 72 Mother Hypertension Social History Social History Smoking status: Never smoker Alcohol intake: current Alcohol use details: 1/YEAR Substance use: never Substance use type: does not use Do You Feel Safe in your Home?: Yes Lack of Transportation: No Lack of Food: Never True Current Housing: I Have Housing Concerned About Future Housing: No Difficulty Paying Gas/Electric Bills: No Difficulty Paying for Meds: No Currently Unemployed: No Education: Master's Degree or Higher Difficulty w/ Childcare or Family Care: No Living arrangements: with family Additional living arrangements comments: PARTNER Occupation/Education: occupation 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 There is no relevant family history pertinent to the patient complaint. Exam Const: General: cooperative, healthy appearing, comfortable, no acute distress, well developed, alert and well nourished Nutritional Appearance: well nourished Orientation/consciousness: patient oriented x3 Limitations: no limitations HENMT: Head: normal to inspection Ears: hearing grossly normal bilaterally, mastoids normal, no periauricular adenopathy and Abnormal EAC present cerumen impaction bilateral Face/Nose/Sinus: Normal external nose present Mouth: Yes Normal oral and palatal mucosa present, Yes lip normal, Yes tongue normal and Yes moist mucous membranes Throat: posterior oropharynx normal, uvula midline and no uvular edema Eyes: General: appearance normal, both eyes and all related structures Alignment and Position: alignment normal Neck: Neck: normal visual inspection, full ROM, no lymphadenopathy and no meningeal signs Chest: Chest palpation & inspection: normal inspection of the chest Resp: Effort & Inspection: normal respiratory effort and able to speak in complete sentences Auscultation: clear to auscultation bilaterally, no crackles, no rales, no rhonchi and no wheezes Cardio: Rate: regular rate Skin: General skin exam: normal color and no rashes or lesions noted Neuro: General: patient oriented x3, gait normal, moves all extremities and no meningeal signs Cognition (Neuro): normal cognition Speech: normal speech Gait exam (Neuro): Normal gait present Extrem: General: normal to inspection, full ROM, capillary refill normal and normal gait Psych: Appearance: grossly normal and well kempt Mental Status: mental status grossly normal Speech and movement: Normal speech and movement present and Clear speech present Affect: normal affect Attitude: cooperative Course Course Level of Care: Express Care Visit Vital Signs Vital signs: Vital Signs Temperature 97.6 F 11/27/24 09:19 Pulse Rate 57 L 11/27/24 09:19 Respiratory Rate 16 11/27/24 09:19 Blood Pressure 141/94 H 11/27/24 09:19 Pulse Oximetry 100 11/27/24 09:19 Oxygen Delivery Room Air 11/27/24 09:19 Temperature 97.6 F 11/27/24 09:19 Pulse Rate 57 L 11/27/24 09:19 Respiratory Rate 16 11/27/24 09:19 Blood Pressure 141/94 H 11/27/24 09:19 Pulse Oximetry 100 11/27/24 09:19 Oxygen Delivery Room Air 11/27/24 09:19 Reviewed Procedures Ear Wax Removal Both Ears: Ear Wax Removal Date: 11/27/24 Ear Wax Removal Time: 09:45 Cerumenolytic Used: other (Peroxide water) Results: Re-examined: cerumen removed completely TM Examination: TM(s) intact, normal appearance Ear Canal Exam: other (Left ear canal mildly swollen without erythema) Patient Tolerated Procedure: well Complications: no problems Technique: ear canal irrigated and ear canal curetted Additional Comments: Procedure explained to patient. Verbal consent obtained. Able to irrigate earwax, removed. TMs intact without erythema. Left ear canal mildly swollen without erythema. Discussed treating with antibiotic ear drops for possible early otitis externa Patient tolerated well Medical Decision Making MDM Narrative Medical decision making narrative: Patient sitting comfortably in exam room. Nontoxic, vitals stable. Patient in no acute distress Patient presents with left ear discomfort. After irrigating removing earwax patient reports increased hearing, decreased discomfort Patient appropriate for outpatient treatment with close follow-up Discharge instructions reviewed with patient, as well as provided in writing per nursing staff. The instructions also include specific and strict return/GO TO THE ER as well as f/u information. All questions have been answered, and the patient deny any further questions with discharge and discharge plan. Some parts of this dictation were generated by voice recognition software and may contain typographical and/or grammatical inaccuracies. Differential Diagnosis Differential Diagnosis: Otitis media, serous otitis, otitis externa Medical Records Medical records reviewed: Yes I reviewed the external patient's medical records. Vital Signs Vital Signs: Vital Signs Temperature 97.6 F 11/27/24 09:19 Pulse Rate 57 L 11/27/24 09:19 Respiratory Rate 16 11/27/24 09:19 Blood Pressure 141/94 H 11/27/24 09:19 Pulse Oximetry 100 11/27/24 09:19 Oxygen Delivery Room Air 11/27/24 09:19 Temperature 97.6 F 11/27/24 09:19 Pulse Rate 57 L 11/27/24 09:19 Respiratory Rate 16 11/27/24 09:19 Blood Pressure 141/94 H 11/27/24 09:19 Pulse Oximetry 100 11/27/24 09:19 Oxygen Delivery Room Air 11/27/24 09:19 Reviewed Lab Data Lab results reviewed: Yes I reviewed the patient's lab results. Labs: Reviewed Critical Care Time Critical Care Time Critical Care Time: No Discharge Plan Discharge Clinical Impression: Bilateral impacted cerumen, Acute swimmer's ear of left side Patient Disposition: Home Condition: Stable Instructions: Antibiotic Form, Swimmer's Ear (ED), How to Use Ear Drops (ED) Additional Instructions: You had Cerumen (EAR wax impaction). Do not use Q-tips or put anything in the ear. This can damage the ear. Instead , use Debrox or ear wax remover. Place 5 drops in ear after a hot shower and place a warm compress over the ear for 20 minutes. alternate doing this every 3-4 days. It will break up the wax gently. Do not use too much pressure. Once you have all of the cerumen out of your ears, you may do preventative treatment to prevent this from happening again. Use 5 drops once weekly after a hot shower. Patient Language: Irish Prescriptions: New ofloxacin 0.3 % drops 5 drp LEFT EAR BID 7 Days Qty: 10 0RF No Action amoxicillin 500 mg capsule 500 mg PO ONCE Qty: 4 2RF Rx Instructions: Take all 4 tablets one hour prior to dental procedure. ibuprofen 600 mg Tablet 600 mg PO Q6H PRN (Reason: Pain) calcium carbonate-vitamin D2 600 mg calcium- 200 unit Tablet 1 tablet PO DAILY alendronate 70 mg tablet 70 mg PO WEEKLY Qty: 12 1RF rosuvastatin 5 mg tablet 2.5 mg PO DAILY Qty: 45 0RF Follow-up/Referrals: Tatyana Puente DO [Primary Care Provider] - Time of Disposition: 10:04
[2024-11-27] MEDS: HYDROGEN PEROXIDE 3% SOLN(*SP) 473 ML BOTTLE 120 ML IRRIGATION (10:00)
== END 2024-11-27 10:13 | disposition home or self-care (01) ==
PROVIDERS: Emergency Provider Nurse Practitioner; PCP Family Medicine
DX: H61.23 Impacted cerumen, bilateral (principal); H60.332 Swimmer's ear, left ear; I10 Essential (primary) hypertension; Z96.651 Presence of right artificial knee joint
CPT/HCPCS: 69209; 99213; A9270; G0463

== ENCOUNTER 2025-02-13 08:51 | Outpatient (CLI) | payer BC, SELFPAY ==
--- NOTE | ~2025-02-13 | MM_ITS ---
EXAMINATION: MM screening [facility] BI w prashant HISTORY: Screening TECHNIQUE: Craniocaudal and mediolateral oblique 3-D tomosynthesis images were obtained and synthetic 2-D images were generated. CAD analysis was submitted and interpreted. COMPARISON: Mammograms from 12/25/2022 and 01/05/2024 BREAST PARENCHYMAL COMPOSITION: The breasts are heterogeneously dense, which may obscure small masses. FINDINGS: There is no evidence of suspicious mass, calcification, or architectural distortion to suggest malignancy. There has been no suspicious interval change. IMPRESSION: 1. No mammographic evidence of malignancy. Recommend routine screening mammography in one year. BI-RADS Category 2: Benign finding(s) Reviewed, dictated and finalized at location Q. IMPRESSION: 1. No mammographic evidence of malignancy. Recommend routine screening mammogra phy in one year. BI-RADS Category 2: Benign finding(s)
--- OUTSIDE RECORDS SUMMARY | 2025-02-13 09:00 | XMS_ITS | Clinical Summary ---
Author Organization [facility] Address [address] [place] [address] Care Team Providers Care Coal Deliverer Name Role Phone Ivan Horne MD Primary Care Provider [phone] Source Comments [facility],non-[facility] Affiliates and Associated Physician Practices is amultiple site organization consisting of ambulatory clinics and hospital sitesin [place], [place], [place] and [place]. This disclosure is being madepursuant to the Care Everywhere program and may not contain all information available regarding this patient. Last updated 18.[facility] Health Allergies No known active allergies Social [...] Comments Blood Pressure 149/91 08/15/2018 5:30 PM PLAYGROUND DIRECTOR Pulse 69 08/15/2018 1:16 PM PLAYGROUND DIRECTOR Temperature 36.7 C (98.1 F) 08/15/2018 1:16 PM PLAYGROUND DIRECTOR Respiratory Rate 16 08/15/2018 1:16 PM PLAYGROUND DIRECTOR Oxygen Saturation 100% 08/15/2018 5:30 PM PLAYGROUND DIRECTOR Inhaled Oxygen Concentration - - Weight 68 kg (150 lb) 08/15/2018 1:16 PM PLAYGROUND DIRECTOR Height 162.6 cm (5' 4) 08/15/2018 1:16 PM PLAYGROUND DIRECTOR Body Mass Index 25.75 08/15/2018 1:16 PM PLAYGROUND DIRECTOR Plan of Treatment Health Maintenance Due Date [...] season) 2024 DEPRESSION SCREENING 06/14/2024 INFLUENZA VACCINE (#1) 2025 Respiratory Syncytial Virus (RSV) Vaccine Pt: [...] patient's age to complete this topic Insurance [facility] Care Teams Coal Deliverer Relationship Specialty Start Date End Date Ivan Horne MD [address] [id number] PCP - General Family Medicine 08/15/18
--- OUTSIDE RECORDS SUMMARY | 2025-02-13 09:00 | XMS_ITS | Clinical Summary ---
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
--- OUTSIDE RECORDS SUMMARY | 2025-02-13 09:00 | XMS_ITS | Continuity of Care Document ---
Author Organization [address] [address] Insurance Providers Payer Plan Claims Address Claims Phone Policy Number Group Number Relation Employer Guarantor Name Guarantor Guarantor Address Guarantor Phone BC [employer] PPO BC [employer] g PPO [id number] Self NATALIE A Haleyonis [address], [place] , [place] [id number] [place] [facility] [address], [place] [address] [phone] Self NATALIE A Cristelukonis [address], [place] , [place] [id number] Blue Cross Blue Shield [employer] BLUE SHIEL D [address], [place] [address] tel:[phone] Self NATALIE A Cristelukonis [address], [place] , [place] [id number] Problems Condition ICD9 code ICD10 code SNOMED code Start Date End Date S tatus Unilateral primary osteoarthritis, right knee M17.11 Unilateral primary osteoarthritis, right knee M17.11 Presence of unspecified artificial knee joint Z96.659 Results No Results Allergies, adverse reactions, alerts No known allergies and adverse reactions Medications No administered medications reported Vital Signs No vital signs reported Social History No smoking Hx information available
== END 2025-02-13 08:52 | disposition home or self-care (01) ==
LOC: ANHIMG 08:52
PROVIDERS: PCP Family Medicine; Visit Provider Family Medicine
DX: Z12.31 Encounter for screening mammogram for malignant neoplasm of breast (principal)
CPT/HCPCS: 77063; 77067